=== PATIENT | female | born 1955 | race Caucasian/White ===

== ENCOUNTER 2016-08-14 09:05 | Day surgery (SDC) | payer BC ==
[2016-08-14] MEDS ORDERED: FENTANYL PF 100MCG/2ML VIAL IV ONE (15:35)
[2016-08-14] MEDS ORDERED: PROPOFOL 10 MG/ML VIAL IV ONE (15:35)
[2016-08-14] MEDS ORDERED: LIDOCAINE 2% MDV (20MG/ML) 20ML VIAL IV ONE (15:35)
--- NOTE | 2016-08-16 10:53 | Operative Note ---
DATE OF SURGERY: 08/14/2016 REFERRING PHYSICIAN: Abraham Car MD PREOPERATIVE DIAGNOSIS: See below. POSTOPERATIVE DIAGNOSIS: See below. PROCEDURE: COLONOSCOPY to the cecum. INDICATION: Colorectal cancer screening. Intravenous sedation was administered by the Department of Anesthesiology and included Diprivan titrated to effect. PROCEDURE: Following informed consent from this alert individual, including a discussion of the risks and benefits of the procedure and an opportunity for the patient to ask questions, the patient was placed in the left lateral decubitus position. A digital rectal examination was performed. No abnormalities were detected. Following this, an Olympus [id number] video colonoscope was inserted into the rectum without resistance. The rectal mucosa had a normal appearance, with normal folds and distensibility. The colonoscope was advanced up through the bowel to the level of the cecum without much difficulty. Throughout the bowel, the mucosa appeared normal, the folds are normal and the bowel is fairly well distensible. There was significant diverticulosis noted in the sigmoid region. The cecum was defined by noting the appendiceal orifice and ileocecal valve. The colon preparation was good. Retroflexion of the cecum was endoscopically normal. From the base of the cecum, the colonoscope was then withdrawn. Again, diverticulosis was noted in the left colon. No other changes were appreciated until the rectum was reached. Retroflexion of the rectum revealed small to moderate size internal hemorrhoids. The endoscope was straightened and withdrawn. The patient tolerated the procedure well and was returned to the recovery area in stable condition. IMPRESSION: 1. Sigmoid diverticulosis. 2. Small to moderate size internal hemorrhoids. RECOMMENDATIONS: Patient was advised to have recheck colonoscopy in 10 years' time or sooner if problems arise. Followup will be with Dr. Abraham Car. As always, thank you for allowing me to participate in the care of your patient. Alvaro Roberts DO CC: Abraham Car MD [facility]
--- NOTE | 2016-08-16 11:50 | Operative Note ---
DATE OF SURGERY: 08/14/2016 REFERRING PHYSICIAN: Abraham Car MD PREOPERATIVE DIAGNOSIS: See below. POSTOPERATIVE DIAGNOSIS: See below. PROCEDURE: ESOPHAGOGASTRODUODENOSCOPY with electrocautery snare polypectomy x 3 for large gastric fundal polyps. HISTORY: Patient had large gastric fundal polyps in the past. One had some reactive atypia. She returns at this time for surveillance. She continues with medication for chronic acid reflux with Prevacid 15 mg daily. Intravenous sedation was administered by the Department of Anesthesiology and included Diprivan titrated to effect. PROCEDURE: Following informed consent from this alert individual, including a discussion of the risks and benefits of the procedure and an opportunity for the patient to ask questions, the patient was placed in the left lateral decubitus position. An Olympus [id number] video endoscope was inserted into the esophagus without resistance. The proximal esophagus had a normal appearance with normal folds and distensibility. The mid and distal esophagus, likewise, were free from changes. The squamocolumnar junction was smooth and well defined. There was a small 2 cm hiatal hernia noted. The hernia sac itself was free from change. The subdiaphragmatic stomach was entered and demonstrated multiple large gastric fundal polyps, the largest measuring perhaps 1.5 to 2 cm in diameter. The remainder of the stomach was endoscopically normal. The pylorus was patent. The duodenal bulb, sweep and descending duodenum were examined in a serial fashion and found to be normal. The endoscope was then withdrawn back into the body of the stomach, where retroflexion accomplished following air insufflation failed to demonstrate additional changes. Because of the prior history, I did elect to remove the largest polyps, and in fact, 3 of the larger polyps were removed. One had some inflammatory changes noted along the greater curvature. The polyps were removed after electrocautery snare was effective. A white eschar was noted. There was no bleeding. A Horowitz retrieval net was used to retrieve the polyps and pull them back out. The patient tolerated the procedure well and was returned to the recovery area in stable condition. IMPRESSION: 1. Small hiatal hernia. 2. Multiple gastric fundal polyps with the 3 largest polyps removed with electrocautery snare polypectomy as described above. RECOMMENDATIONS: The patient will continue on Prevacid 15 mg daily. Further recommendations will be forthcoming pending results of pathology. Followup will also be with Dr. Abraham Car. As always, thank you for allowing me to participate in the care of your patient. Alvaro Roberts DO CC: Abraham Car MD MTDAdarsh
== END 2016-08-14 09:45 | disposition home or self-care (01) ==
LOC: HOP 09:05
PROVIDERS: ATTEND Internal Medicine Gastroenterology
DX: Z12.11 Encounter for screening for malignant neoplasm of colon (principal); K57.30 Diverticulosis of large intestine without perforation or abscess without bleeding; K31.7 Polyp of stomach and duodenum; K64.8 Other hemorrhoids; I10 Essential (primary) hypertension; K44.9 Diaphragmatic hernia without obstruction or gangrene
CPT/HCPCS: 45378; 43251; 00810; J3010